=== PATIENT | female | born 1945 | race Caucasian/White ===

== ENCOUNTER 2020-07-23 09:02 | Outpatient (CLI) | payer OTHER, SELFPAY ==
--- NOTE | ~2020-07-23 | MM_ITS ---
EXAMINATION: MM screening stephanie BI w andriy HISTORY: Screening mammogram TECHNIQUE: Craniocaudal and mediolateral oblique 3-D tomosynthesis images were obtained and synthetic 2-D images were generated. CAD analysis was submitted and interpreted. COMPARISON: 05/19/2019, 06/04/2018, 06/03/2017 bilateral digital screening mammogram examinations BREAST PARENCHYMAL COMPOSITION: There are scattered areas of fibroglandular density. FINDINGS: There is volume loss of the right breast, asymmetry as well as some benign calcifications; these are stable postoperative changes from right partial mastectomy for history of right breast yariel gnancy. There is no evidence of suspicious mass, calcification, or architectural distortion to sugges t malignancy in either breast. There has been no suspicious interval change. IMPRESSION: 1. No mammographic evidence of interval malignancy; status post right partial mastectomy for breast m alignancy. 2. Recommend routine screening mammography in one year. BI-RADS Category 2: Benign finding(s). Reviewed, dictated and finalized at location A. [employer] SET UP OPERATOR IMPRESSION: 1. No mammographic evidence of interval malignancy; status post right partial m astectomy for breast malignancy. 2. Recommend routine screening mammography in one year. BI-RADS Category 2: Benign finding(s).
--- NOTE | ~2020-07-23 | DEXA_ITS ---
Bone Density Report Name: Penny Flores Age: 75 Sex: Female Ethnicity: White Date of : 1945 Indication: postmenopausal osteoporosis; monitoring treatment; height loss; prior fracture; cancer; Referring Provider: MARIBELL ROME Study: Bone densitometry was performed. Exam Date: July 23, 2020 Accession number: [id number] Bone Density: Region BMD T-score Z-score Classification AP Spine (L1-L4) 0.713 -3.0 -0.7 Osteoporosis Femoral Neck (Right) 0.484 -3.3 -1.2 Osteoporosis Total Hip (Right) 0.659 -2.3 -0.6 Osteopenia World Health Organization criteria for BMD impression classify patients as: Normal (T-score at or above -1.0), Osteopenia (T-score between -1.0 and -2.5), or Osteoporosis (T-score at or below -2.5). 10-year Fracture Risk: FRAX not reported because: Some T-score for Spine Total or Hip Total or Femoral Neck at or below -2.5 Prior hip or vertebral fracture Treated for osteopor Previous Exams: Region Exam Age BMD T-score BMD Change BMD Change Date g/cm2 vs Baseline vs Previous AP Spine(L1-L4) 07/23/2020 75 0.713 -3.0 0.010(1.4%) 0.018(2.6%) 05/19/2019 74 0.695 -3.2 -0.009(-1.2%) -0.009(-1.2%) 06/07/2014 69 0.704 -3.1 Total Hip(Right) 07/23/2020 75 0.659 -2.3 0.061(10.3%)* 0.034(5.5%)* 05/19/2019 74 0.625 -2.6 0.027(4.5%) 0.012(1.9%) 08/28/2016 71 0.614 -2.7 0.015(2.6%) 0.015(2.6%) 06/07/2014 69 0.598 -2.8 *Denotes significance at 95% confidence level, LSC for AP Spine = 0.022 g/cm2, LSC for Total Hip = 0.027 g/cm2 Clinical Information Provided by Patient: Have had a previous hip or vertebral fracture Has had a low trauma fracture Is being treated for osteoporosis Has used the following medications: Actonel (i.e. risedronate), Vitamin D, Calcium Has the following medical conditions: Cancer Patient maximum height was 66 Menopause Age: 46 No regular weight bearing exercise Does not regularly consume dairy products Drinks caffeinated beverages Onset of menses at age 16 Number of children 2 Impression: The patient has established osteoporosis, based on the Right Femoral Neck T-score and the existence of a prior fracture. The patient has risk factors, including: previous fracture. No significant bone loss was observed. Discussion: PATIENT UNDER TREATMENT WITH NO SIGNIFICANT BMD LOSS SINCE LAST EXAM. In an untreated patient, BMD typically declines with age. A lack of decline or gain is usually a sign that treatment is efficacious and fracture
== END 2020-07-23 09:03 | disposition home or self-care (01) ==
LOC: ANHIMG 09:04
PROVIDERS: PCP Internal Medicine; Visit Provider Internal Medicine
DX: Z12.31 Encounter for screening mammogram for malignant neoplasm of breast (principal); M81.0 Age-related osteoporosis without current pathological fracture; M85.851 Other specified disorders of bone density and structure, right thigh
CPT/HCPCS: 77063; 77067; 77080

== ENCOUNTER 2020-11-07 08:20 | Outpatient (CLI) | payer OTHER, SELFPAY ==
--- NOTE | ~2020-11-07 | XR_ITS ---
EXAMINATION: XR lumbar spine 2-3V EXAM DATE: 11/07/2020 08:40 INDICATION: M54.9 - Dorsalgia, unspecified;hx of ruptured disc; no inj . TECHNIQUE: Lumber spine frontal, lateral, lateral L5-S1 projections for interpretation. Comparison is made to prior examination from 06/03/2017. FINDINGS: Mild lumbar dextroscoliosis. Left hip arthroplasty. Moderate loss of the L5-S1 disc height . Mild disc disease at the other lumbar levels. The vertebral bodies are aligned in the AP dimension. Up to moderate lumbar facet arthropathy. Sacrum, sacroiliac joints, sacral arcuate lines are intact. There are no acute fractures identified. There is no significant interval change. IMPRESSION: 1. Moderate facet arthropathy and L5-S1 disc disease. 2. Mild dextroscoliosis. Reviewed, dictated and finalized at location A.
== END 2020-11-07 08:21 | disposition home or self-care (01) ==
PROVIDERS: PCP Internal Medicine; Visit Provider Internal Medicine
DX: M51.37 Other intervertebral disc degeneration, lumbosacral region (principal)
CPT/HCPCS: 72100

== ENCOUNTER 2021-02-01 08:46 | Emergency (ER) | payer OTHER, SELFPAY ==
--- NOTE | ~2021-02-01 | CT_ITS ---
EXAMINATION: CT abdomen pelvis wo con DATE: 02/01/2021 10:08 INDICATION: Right lower quadrant pain TECHNIQUE: Computed tomography (CT) of the abdomen and pelvis was performed without intravenous contr ast. The dose-length product was 287.53 mGy-cm. Automated exposure control and iterative reconstructi on technique were employed. COMPARISON: None. FINDINGS: Lung bases are unremarkable. Heart size normal. No significant pleural or pericardial effus ion. There is atherosclerosis of the aorta without aneurysm. There is a left total hip arthroplasty. There are calcified granulomas of the spleen. The liver, adrenal glands, pancreas, kidneys are unrema rkable. Gallbladder is present. Normal appendix. There is jone appearance to the mesentery, nonspeci fic. No significant lymphadenopathy. Nonobstructive bowel gas pattern. No free air or free fluid. Mod erate lumbar spondylosis. IMPRESSION: 1. No acute abdominal abnormality. Reviewed, dictated and finalized at location B.
[2021-02-01 09:00] VITALS: BP 115/66; PULSE 103; RESP 18; TEMP 36.4; O2SAT 97
--- NOTE | 2021-02-01 09:45 | ED.NAVMDI ---
HPI - Nausea/Vomiting/Diarrhea General Chief complaint: Nausea/Vomiting/Diarrhea Stated complaint: diarrhea x 1 week Time Seen by Provider: 02/01/21 09:33 Source: patient, family and RN notes reviewed Limitations: no limitations History of Present Illness HPI Narrative: Patient is 75 years old white female brought to the emergency room by private car complaining of watery diarrhea for 1 week. 5-10 episodes a day. Associated with abdominal pain which should get better after having bowel movement. Patient denies any fever, chills, vomiting. Patient lives with her granddaughter. Patient been treated for breast cancer 10 years ago. Patient does not smoke, drink or uses drugs. Patient been on Imodium for 1 week without any significant improvement, started yesterday on Lomotil without any improvement Related Data Home Medications Medication Instructions Recorded Confirmed travoprost 0.004 % eye drops 1 drp OPHTHALMIC (EYE) QPM 06/15/20 12/24/20 Allergies Allergy/AdvReac Type Severity Reaction Status Date / Time No Known Drug Allergies Allergy Unknown n/a Verified 12/24/20 08:18 Review of Systems Review of Systems: Narrative: CONSTITUTIONAL: Denies fever, chills, or sweats. EYES: Denies visual changes, redness, or discharge. ENT: Denies rhinorrhea, congestion, sore throat, or otalgia. CARDIOVASCULAR: Denies chest pain, palpitations, or edema. RESPIRATORY: Denies cough or dyspnea. GASTROINTESTINAL: Denies abdominal pain, nausea, vomiting, or diarrhea. GENITOURINARY: Denies dysuria or hematuria. SKIN: Denies rash or itching. MUSCULOSKELETAL: Denies back pain, joint pain, or myalgia. NEUROLOGIC: Denies headache, numbness, or weakness. PSYCHIATRIC: Denies anxiety or depression. [facility] Family History Family History Sibling Family history of hepatitis Family history of lung cancer Family history of malignant neoplasm of breast in first degree relative Family history of heart disease in male family member before age 55 Father Family history of heart disease in male family member before age 55 Patient's father is Family history of cardiovascular disease Mother Family history of heart disease in male family member before age 55 Family history of cardiovascular disease Other Hypertension Social History Social History Years smoked: 1 Smoking status: Former smoker Tobacco type: cigarettes Second hand tobacco smoke exposure: No Alcohol intake: former Exam Narrative: Exam Narrative: General appearance: Well-developed, well-nourished, looks pale and weak, no family member at the bedside Skin: Normal color Head: Normocephalic, nontraumatic Eyes: Clear conjunctiva ENT: Oropharynx normal, ears normal, nose normal Neck: Supple, nontender Chest and respiratory: Airway patent, no respiratory distress, no accessory muscle use Heart: Regular rate/rhythm Abdomen: Soft, mild tenderness right abdomen, no organomegaly, active bowel sounds Vascular: Normal peripheral pulses, normal capillary refill. 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
[2021-02-01 10:00] VITALS: BP 110/72; PULSE 100; RESP 18; O2SAT 98
[2021-02-01] MEDS: ONDANSETRON INJ 4 MG/2 ML VIAL IV PUSH (10:21)
[2021-02-01] MEDS: SODIUM CHLORIDE 0.9% IV 2,000 ML 999 ML IV CONT (10:21)
[2021-02-01 10:28] LABS: Basophils Percent Auto 0.4 % (0.2-1.2); Eosinophils Absolute Auto 0.1 K/mm3 (0-0.3); Eosinophils Percent Auto 0.9 % (0-4.4); Hematocrit 36.9 % (37.0-47.0); Hemoglobin 12.3 g/dL (12.0-15.0); Immature Granulocyte Absolute 0.02 K/mm3 (0.00-0.031); Immature Granulocyte Percent A 0.2 % (0-0.5); Lymphocytes Absolute Auto 1.28 K/mm3 (0.9-3.2); Lymphocytes Percent Auto 13.2 % (18.3-44.2); Mean Corpuscular HGB Conc 33.3 g/dl (32-36); Mean Corpuscular Hemoglobin 29.7 pg (26-34); Mean Corpuscular Volume 89.1 fl (80-100); Mean Platelet Volume 9.4 fl (7.4-10.4); Monocytes Percent Auto 9.8 % (2.6-8.5); Neutrophils Absolute Auto 7.3 K/mm3 (1.3-6.7); Neutrophils Percent Auto 75.5 % (45.5-73.1); Platelet Count Result 205 k/mm3 (150-375); Red Blood Count 4.14 M/mm3 (4.2-5.4); Red Cell Distribution Width 12.2 % (11.5-14.5); White Blood Count 9.7 K/mm3 (4.5-10.0)
[2021-02-01 10:35] LABS: Add Urine Microscopic? YES; Appearance Urine Clear (Clear); Bacteria Urine Trace /hpf; Bilirubin Urine Negative (Negative); Blood Urine Negative (Negative); Color Urine Yellow (Yellow); Glucose Urine UA Negative (Negative); Ketones Urine 1+ mg/dL (Negative); Leukocyte Esterase Ur 1+ LEU/UL (Negative); Mucus Urine Rare /lpf; Nitrate Urine Negative (Negative); Protein Urine 1+ mg/dL (Negative); RBC Urine 0-2 /hpf (0-2); Specific Grav Ur 1.013 (1.001-1.035); Squamous Epithelial Cell Urine Many /hpf (Few); Urobilinogen Urine Negative mg/dL (<2.0); WBC Urine 0-3 /hpf
[2021-02-01 10:39] LABS: Alanine Aminotransferase 8 U/L (4-35); Alkaline Phosphatase 67 U/L (38-126); Anion Gap 7 mmol/L (8-16); Aspartate Amino Transferase 25 U/L (14-36); Bilirubin,Total 0.5 mg/dL (0.2-1.3); Blood Urea Nitrogen 10 mg/dL (7-17); Carbon Dioxide 27 mmol/L (22-30); Chloride 103 mmol/L (98-107); Estimated CRCL calculation 48 ml/min; Estimated Glomerular Filt Rate > 60; Glucose 88 mg/dL (65-105); Lipase 76 U/L (23-300); Sodium 137 mmol/L (137-145)
[2021-02-01 11:00] VITALS: BP 115/78; PULSE 79; RESP 18; O2SAT 100
== END 2021-02-01 12:48 | disposition home or self-care (01) ==
PROVIDERS: Emergency Provider Emergency Medicine; PCP Internal Medicine
DX: R19.7 Diarrhea, unspecified (principal); Z85.3 Personal history of malignant neoplasm of breast; Z87.891 Personal history of nicotine dependence
CPT/HCPCS: 36415; 74176; 80053; 81001; 83690; 85025; 96361; 96374; 99284; J2405; J7030

== ENCOUNTER 2021-08-22 07:46 | Outpatient (CLI) | payer OTHER, SELFPAY ==
--- NOTE | ~2021-08-22 | MM_ITS ---
EXAMINATION: MM screening [facility] BI w andriy HISTORY: Screening TECHNIQUE: Craniocaudal and mediolateral oblique 3-D tomosynthesis images were obtained and synthetic 2-D images were generated. CAD analysis was submitted and interpreted. COMPARISON: Comparison to multiple prior studies sequentially, with oldest reviewed study dated 03/2015. BREAST PARENCHYMAL COMPOSITION: There are scattered areas of fibroglandular density. FINDINGS: There is no evidence of suspicious mass, calcification, or architectural distortion to sugg est malignancy in either breast. There has been no suspicious interval change. IMPRESSION: 1. No mammographic evidence of malignancy. 2. Recommend routine screening mammography in one year. BI-RADS Category 1: Negative Reviewed, dictated and finalized at location A. NAILER
== END 2021-08-22 07:47 | disposition home or self-care (01) ==
LOC: ANHIMG 07:48
PROVIDERS: PCP Internal Medicine; Visit Provider Nurse Practitioner
DX: Z12.31 Encounter for screening mammogram for malignant neoplasm of breast (principal)
CPT/HCPCS: 77063; 77067

== ENCOUNTER 2022-08-06 10:56 | Outpatient (CLI) | payer OTHER, SELFPAY ==
--- NOTE | ~2022-08-06 | DEXA_ITS ---
Bone Density Report Name: PJ PETE Age: 77 Sex: Female Ethnicity: White Date of : 1945 Indication: postmenopausal osteoporosis; monitoring treatment; prior fracture; cancer; Referring Provider: MARIBELL ROME Study: Bone densitometry was performed. Exam Date: August 06, 2022 Accession number: [id number] Bone Density: Region BMD T-score Z-score Classification AP Spine(L1-L4) 0.706 -3.1 -0.6 Osteoporosis Femoral Neck (Right) 0.502 -3.1 -1.0 Osteoporosis Total Hip (Right) 0.589 -2.9 -1.0 Osteoporosis World Health Organization criteria for BMD impression classify patients as: Normal (T-score at or above -1.0), Osteopenia (T-score between -1.0 and -2.5), or Osteoporosis (T-score at or below -2.5). 10-year Fracture Risk: FRAX not reported because: Some T-score for Spine Total or Hip Total or Femoral Neck at or below -2.5 Prior hip or vertebral fracture Treated for osteoporosis Previous Exams: Region Exam Age BMD T-score BMD Change BMD Change Date g/cm2 vs Baseline vs Previous AP Spine (L1-L4) 08/06/2022 77 0.706 -3.1 0.002 (0.2%) -0.008 (-1.1%) 07/23/2020 75 0.713 -3.0 0.010 (1.4%) 0.018 (2.6%) 05/19/2019 74 0.695 -3.2 -0.009 (-1.2%) -0.009 (-1.2%) 06/07/2014 69 0.704 -3.1 Total Hip(Right) 08/06/2022 77 0.589 -2.9 -0.009 (-1.4%) -0.070 (-10.6% 07/23/2020 75 0.659 -2.3 0.061 (10.3%)* 0.034 (5.5%)* 05/19/2019 74 0.625 -2.6 0.027 (4.5%) 0.012 (1.9%) 08/28/2016 71 0.614 -2.7 0.015 (2.6%) 0.015 (2.6%) 06/07/2014 69 0.598 -2.8 *Denotes significance at 95% confidence level, LSC for AP Spine = 0.022 g/cm2, LSC for Total Hip = 0.027 g/cm2 Clinical Information Provided by Patient: Have had a previous hip or vertebral fracture Has had a low trauma fracture Is being treated for osteoporosis Has used the following medications: Fosamax (i.e. alendronate), Vitamin D, Calcium Has the following medical conditions: Cancer Patient maximum height was 65 Menopause Age: 46 No regular weight bearing exercise Onset of menses at age 16 Number of children 2 Impression: The patient has established osteoporosis, based on the Total Spine T-score and the existence of a prior fracture. The patient has risk factors, including: previous fracture. The BMD for the Total Hip(Right) decreased, changing by -10.6% since the last DXA exam. Discussion: SIGNIFICANT BONE LOSS OBSERVED. Adherence to therapy (including calcium and vitamin D intake) should be assessed. If compliance is
== END 2022-08-06 10:57 | disposition home or self-care (01) ==
LOC: ANHIMG 10:57
PROVIDERS: PCP Internal Medicine; Visit Provider Internal Medicine
DX: M81.0 Age-related osteoporosis without current pathological fracture (principal)
CPT/HCPCS: 77080

== ENCOUNTER 2023-03-31 07:36 | Outpatient (CLI) | payer OTHER, SELFPAY ==
--- NOTE | ~2023-03-31 | MM_ITS ---
EXAMINATION: MM screening stephanie BI w andriy HISTORY: Screening mammogram, history of right breast cancer TECHNIQUE: Craniocaudal and mediolateral oblique 3-D tomosynthesis images were obtained and synthetic 2-D images were generated. CAD analysis was submitted and interpreted. COMPARISON: 08/22/2021, 07/23/2020, 05/19/2019 BREAST PARENCHYMAL COMPOSITION: There are scattered areas of fibroglandular density. FINDINGS: There are chronic changes in the right breast related to the lumpectomy and radiation treat ment. No suspicious mass, calcification, or architectural distortion are identified in either breast to suggest malignancy. There has been no suspicious interval change. IMPRESSION: 1. No mammographic evidence of malignancy. 2. Recommend routine screening mammography in one year. BI-RADS Category 2: Benign finding(s). Reviewed, dictated and finalized at location A.
== END 2023-03-31 07:37 | disposition home or self-care (01) ==
PROVIDERS: PCP Family Medicine; Visit Provider Family Medicine
DX: Z12.31 Encounter for screening mammogram for malignant neoplasm of breast (principal); Z85.3 Personal history of malignant neoplasm of breast
CPT/HCPCS: 77063; 77067

== ENCOUNTER 2024-12-03 10:54 | Emergency (ER) | payer OTHER, SELFPAY ==
--- NOTE | ~2024-12-03 | XR_ITS ---
EXAM/PROCEDURE: XR chest 2V - 12/03/2024 11:26 CDT HISTORY: 79 years old Female with cough with crackles TECHNIQUE: Two view(s) of the chest. COMPARISON: 03/14/2017 FINDINGS: LUNGS/ PLEURA: No focal consolidation. No appreciable pneumothorax or large pleural effusion. 1.2 cm pulmonary nodule in the right lower lung zone, new since 2017. HEART/ MEDIASTINUM: Heart appears normal in size. BONES: Degenerative changes. Status post kyphoplasty of mid thoracic vertebral body. OTHER: Visualized upper abdomen is unremarkable. IMPRESSION: No acute process. 1.2 cm pulmonary nodule in the right lung base, new since 2017. Nonemergent outpatient CT chest is re commended for further evaluation. Reviewed, dictated and finalized at location A. IMPRESSION: No acute process. 1.2 cm pulmonary nodule in the right lung base, new since 2016. Nonemergent out patient CT chest is recommended for further evaluation.
--- NOTE | 2024-12-03 11:11 | ED.GENADULT ---
HPI - General Adult General Chief complaint: Upper Respiratory Infection Stated complaint: COUGH/LOSING VOICE Time Seen by Provider: 12/03/24 11:11 Source: patient Mode of arrival: ambulatory Limitations: no limitations History of Present Illness HPI narrative: 71-year-old female patient presents to [facility] with complaints of a cough for the past 6 days. Patient states she has had some body aches, chills, runny nose congestion. Patient states she has had some right-sided pain when coughing. Patient states she has also lost her voice. Patient has not measured her temperature since symptoms started. Patient states she has been taking some [id number] [place] Plus for her symptoms. Patient has received her up-to-date COVID and influenza vaccines this season. Related Data Home Medications ?Medication ?Instructions ?Recorded ?Confirmed ?Last Taken ?Type travoprost 0.004 % eye drops 1 drp ophthalmic (eye) QPM 06/15/20 07/21/22 Unknown History (Travatan Z) latanoprost 0.005 % eye drops drp 12/03/24 Unknown History Allergies Allergy/AdvReac Type Severity Reaction Status Date / Time No Known Drug Allergies Allergy Unknown n/a Verified 12/03/24 11:09 Review of Systems Review of Systems: CONSTITUTIONAL: Positive body aches fever, and chills, or sweats. EYES: Denies visual changes, redness, or discharge. ENT: positive rhinorrhea, congestion, denies sore throat, or otalgia. CARDIOVASCULAR: Denies chest pain, palpitations, or edema. RESPIRATORY: positive cough, denies dyspnea. GASTROINTESTINAL: Denies abdominal pain, nausea, vomiting, or diarrhea. GENITOURINARY: Denies dysuria or hematuria. SKIN: Denies rash or itching. MUSCULOSKELETAL: Denies back pain, joint pain, or myalgia. NEUROLOGIC: Denies headache, numbness, or weakness. PSYCHIATRIC: Denies anxiety or depression. [facility] Family History Family History Sibling Family history of hepatitis Family history of lung cancer Family history of malignant neoplasm of breast in first degree relative Family history of heart disease in male family member before age 55 Father Family history of heart disease in male family member before age 55 Patient's father is Family history of cardiovascular disease Mother Family history of heart disease in male family member before age 55 Family history of cardiovascular disease Other Hypertension Social History Social History Years smoked: 1 Smoking status: Never smoker Tobacco type: cigarettes Second hand tobacco smoke exposure: No Alcohol intake: former Substance use: never Lack of Transportation: No Lack of Food: Never True Current Housing: I Have Housing Concerned About Future Housing: No Difficulty Paying Gas/Electric Bills: No Difficulty Paying for Meds: No Currently Unemployed: No Education: Grade School Difficulty w/ Childcare or Family Care: No Comments At the time of my signature I agree with nursing past medical history, surgical, social, and family history. There is no relevant family history pertinent to the presenting complaint. Exam Narrative: GENERAL: Well-appearing, well-nourished, and in no acute distress. HEAD: Normocephalic, atraumatic. EYES: PERRLA and EOMI. ENT: Nares with erythema and edema noted bilaterally, no rhinorrhea or epistaxis. Mucous membranes moist. posterior pharynx with no erythema, tonsillar enlargement, exudates or lesions present. There is a little bit of fluid noted behind bilateral TMs but no erythema no bulging noted. NECK: Supple. No lymphadenopathy CHEST: Patient has possibly very slight crackles noted to the bilateral lower lobes and decreased lung sounds noted to bilateral lower and upper lobes on auscultation. patient does have an ongoing cough noted during exam. No respiratory distress. HEART: Regular rate and rhythm. No murmur heard. Normal peripheral pulses. ABDOMEN: Soft, nontender, nondistended, normal active bowel sounds. EXTREMITIES: Normal range of motion. No edema. SKIN: Warm, dry, no rash. NEURO: No focal deficits. Alert and oriented x3. Course Course Level of Care: Express Care Visit Reevaluation(s) Reevaluation #1: Re-evaluated patient notified her that the x-rays negative for any acute pneumonia. Her of care swabs for COVID and flu were negative. Discussed with her this is most likely a virus and we will discharge her home with some oral steroids, albuterol inhaler and Tessalon Perles for the coughing. Patient did feel much better after receiving albuterol treatment and lungs have improved. Discussed with patient that a nodule was noted on the chest x-ray that is new from comparison from 2017. Patient denies any history of smoking however she states that her was a 3 pack per day smoker and did smoke in the house and did of lung cancer. Discussed with patient that I highly recommend that she call her primary doctor on Thursday and follow up with this finding on her x-ray. A copy of the x-ray was provided to her to take to her doctor. Patient verbalized understanding of this. Date: 12/03/24 Time: 12:04 Vital Signs Vital signs: Vital Signs Temperature 37.0 C 12/03/24 11:31 Pulse Rate 102 H 12/03/24 11:31 Respiratory Rate 16 12/03/24 11:31 Blood Pressure 158/83 H 12/03/24 11:31 Pulse Oximetry 98 12/03/24 11:31 Temperature 37.0 C 12/03/24 11:31 Pulse Rate 102 H 12/03/24 11:31 Respiratory Rate 16 12/03/24 11:31 Blood Pressure 158/83 H 12/03/24 11:31 Pulse Oximetry 98 12/03/24 11:31 Vital signs reviewed. Medical Decision Making MDM Narrative Medical decision making narrative: Plan of care for patient is to swab her today for COVID and influenza as well as provide her a chest x-ray to rule out pneumonia we will also give her breathing treatment to help with the ongoing coughing. Differential Diagnosis Differential Diagnosis: Differential diagnosis: Allergic rhinitis, chronic sinusitis, tonsillitis, acute sinusitis, infectious mononucleosis, seasonal influenza, pertussis, diphtheria, meningococcal disease, viral syndrome, viral bronchitis, RSV, COVID-19 Vital Signs Vital Signs: Vital Signs Temperature 37.0 C 12/03/24 11:31 Pulse Rate 102 H 12/03/24 11:31 Respiratory Rate 16 12/03/24 11:31 Blood Pressure 158/83 H 12/03/24 11:31 Pulse Oximetry 98 12/03/24 11:31 Temperature 37.0 C 12/03/24 11:31 Pulse Rate 102 H 12/03/24 11:31 Respiratory Rate 16 12/03/24 11:31 Blood Pressure 158/83 H 12/03/24 11:31 Pulse Oximetry 98 12/03/24 11:31 Imaging Data [facility]'s [facility] [address] [place] [address] [place] [address] XRay Report Signed Patient: Penny Saravia : 1945 MR#: [id number] Age: 79 Acct:[id number] Loc: [id number] ADM Date: 12/03/24Attending Dr: Ordering Physician: Annette Freeman APRN Date of Service: 12/03/24 Procedure(s): XR chest 2V Accession Number(s): [id number] cc: Nathaniel Hernandez MD; Annette Freeman SILK SCREEN PRINTER MACHINE~ EXAM/PROCEDURE: XR chest 2V - 12/03/2024 11:26 CDT HISTORY: 79 years old Female with cough with crackles TECHNIQUE: Two view(s) of the chest. COMPARISON: 03/14/2017 FINDINGS: LUNGS/ PLEURA: No focal consolidation. No appreciable pneumothorax or large pleural effusion. 1.2 cm pulmonary nodule in the right lower lung zone, new since 2017. HEART/ MEDIASTINUM: Heart appears normal in size. BONES: Degenerative changes. Status post kyphoplasty of mid thoracic vertebral body. OTHER: Visualized upper abdomen is unremarkable. IMPRESSION: No acute process. 1.2 cm pulmonary nodule in the right lung base, new since 2017. Nonemergent outpatient CT chest is recommended for further evaluation. Reviewed, dictated and finalized at location A. Critical Care Time Critical Care Time Critical Care Time: No Discharge Plan Discharge Clinical Impression: Viral URI with cough Patient Disposition: Home Condition: Stable Instructions: Antibiotic Form, Viral Syndrome (ED) Additional Instructions: Viral illness may last between 7-12days; antibiotic is NOT recommended at this time. Recommend antihistamine such as Benadryl at night time and Claritin/Zyrtec/Belen during the day Cough syrup may cause drowsiness; avoid driving or take it at night time. Use inhaler as needed for cough, wheezing, shortness of breath or chest tightness. Take oral steroids in the morning with food. Also, recommend symptomatic treatment includes: rest, fluids, and increase humidity of the air at home. Recommend Acetaminophen or nonsteroidal anti-inflammatory agents (NSAIDs) as directed in the bottle to reduce fever and/pain/headache. Avoid smoking/second-hand smoke. Limit visits to areas with large crowds. Please schedule a follow-up visit with your personal physician for further evaluation and treatment within 3-5days. Including recheck and discussion of your blood pressure. If your symptoms persist, change or worsen significantly before you can contact your personal physician then please, without delay, go to the emergency department for further evaluation. Patient Language: Kuwaiti Prescriptions: New benzonatate 200 mg capsule 200 mg PO TID PRN (Reason: cough) 10 Days Qty: 30 0RF prednisone 20 mg tablet 40 mg PO DAILY 5 Days Qty: 10 0RF albuterol sulfate [Ventolin HFA] 90 mcg/actuation HFA aerosol inhaler 2 puff INHALATION .Q4 hours PRN (Reason: cough) Qty: 18 0RF No Action latanoprost 0.005 % drops travoprost [Travatan Z] 0.004 % drops 1 drp ophthalmic (eye) QPM vitamin D3-vitamin K2 1,250-200 mcg capsule 1 cap PO WEEKLY Qty: 14 1RF Prolia 60 mg/mL syringe 60 mg subcut [id number] Qty: 1 5RF ropinirole 0.5 mg tablet See Rx Instructions .ROUTE .COMPLEX Qty: 90 1RF Dose Instruction: TAKE 1 TABLET BY MOUTH EVERYDAY AT BEDTIME Rx Instructions: TAKE 1 TABLET BY MOUTH EVERYDAY AT BEDTIME tramadol 50 mg tablet 50 mg PO Q6H PRN (Reason: pain) Qty: 100 0RF Follow-up/Referrals: Nathaniel Hernandez MD [Primary Care Provider] - Time of Disposition: 12:04
[2024-12-03 11:15] VITALS: PULSE 102; RESP 20; O2SAT 98
[2024-12-03 11:31] VITALS: BP 158/83; PULSE 102; RESP 16; TEMP 37; O2SAT 98
[2024-12-03] MEDS: IPRATROPIUM 0.5 MG/ALBUTEROL SULFATE 2.5 MG AMPUL.NEB 3 ML INHALATION (11:39)
[2024-12-03 12:00] VITALS: PULSE 95; RESP 20; O2SAT 98
[2024-12-03 13:03] LABS: EDCOVIDSCREEN Negative (Negative); EDINFLUASCREEN Negative (Negative); EDINFLUBSCREEN Negative (Negative)
== END 2024-12-03 12:08 | disposition home or self-care (01) ==
PROVIDERS: Emergency Provider Nurse Practitioner Family; PCP Family Medicine
DX: J06.9 Acute upper respiratory infection, unspecified (principal); B97.89 Other viral agents as the cause of diseases classified elsewhere; Z20.822 Contact with and (suspected) exposure to COVID-19
CPT/HCPCS: 71046; 87426; 87804; 94640; 99213; G0463

== ENCOUNTER 2024-12-08 08:53 | Outpatient (CLI) | payer OTHER, SELFPAY ==
--- NOTE | ~2024-12-08 | CT_ITS ---
CT Scan of the Chest without Contrast: Clinical Indication: Pulmonary nodule Technique: Contiguous sections were acquired throughout the chest without intravenous contrast. Dose reduction technique was used on this scan by utilizing automated exposure control and iterative recon struction technique. The dose-length product (DLP) was 92.20 mGy-cm. Findings: There is no evidence of any significant mediastinal, hilar or axillary lymphadenopathy. Coronary aria ry calcifications are present. There is no evidence of pleural or pericardial effusion. 3 mm right apical nodule present. There is curvilinear scarring in the inferior right upper lobe. The re is focal ground glass opacities in the right lower lobe. There is minimal bibasilar scarring and q uestionable minimal bibasilar tree-in-bud opacities. Images through the upper abdomen reveal no abnormalities. T9 vertebroplasty noted. Impression: Possible minimal bibasilar tree-in-bud opacities with minimal bibasilar scarring. Additional 3 mm api tj nodule. Findings could reflect minimal small airways infectious process. No overtly suspicious pu lmonary nodule seen. Reviewed, dictated and finalized at location M. Impression: Possible minimal bibasilar tree-in-bud opacities with minimal bibasilar scarrin g. Additional 3 mm apical nodule. Findings could reflect minimal small airways infectious process. No overtly suspicious pulmonary nodule seen.
== END 2024-12-08 08:54 | disposition home or self-care (01) ==
LOC: GOSHIMG 08:54
PROVIDERS: PCP Family Medicine; Visit Provider Family Medicine
DX: R91.1 Solitary pulmonary nodule (principal)
CPT/HCPCS: 71250

== ENCOUNTER 2025-01-24 09:35 | Outpatient (CLI) | payer OTHER, SELFPAY | END 2025-01-24 09:36 | disposition home or self-care (01) | LOC: ANHAUDIO 09:36 | PROVIDERS: PCP Family Medicine; Visit Provider Otolaryngology | DX: H90.3 Sensorineural hearing loss, bilateral (principal) | CPT/HCPCS: 92557; 92567 ==

== ENCOUNTER 2025-01-27 11:42 | Outpatient (CLI) | payer OTHER, SELFPAY | END 2025-01-27 11:43 | disposition home or self-care (01) | LOC: ANHAUDIO 11:43 | PROVIDERS: PCP Family Medicine; Visit Provider Otolaryngology | DX: H90.3 Sensorineural hearing loss, bilateral (principal) | CPT/HCPCS: 92557; 92567 ==

== ENCOUNTER 2025-05-08 08:28 | Emergency (ER) | payer OTHER, SELFPAY ==
[2025-05-08 08:39] VITALS: BP 148/73; PULSE 92; RESP 16; TEMP 36.2; O2SAT 100
--- NOTE | 2025-05-08 09:14 | ED.EXTPRO ---
HPI - Extremity Problem General Chief complaint: Extremity Problem,Nontraumatic Stated complaint: R Arm Pain Time Seen by Provider: 05/08/25 08:35 Source: patient and RN notes reviewed Mode of arrival: ambulatory Limitations: no limitations History of Present Illness HPI Narrative: 80-year-old female presents to the [facility] complaining of right hand/forearm numbness. Patient said symptoms started on Thursday proximally 2 days ago. Patient denies any falls or injuries. Patient reports she feels right hand is non will radiate up into her right elbow with numbness and shooting pains. Patient reports certain movements of her elbow she will have the same symptoms up into her right upper arm. Patient denies any neck pain, headache, dizziness lightheadedness, vision changes, slurred speech, facial drooping, with focal weakness or loss of consciousness, confusion, or any other symptoms. Says she has a history of degenerative disc disease, arthritis, or osteoporosis. Related Data Home Medications ?Medication ?Instructions ?Recorded ?Confirmed ?Last Taken ?Type travoprost 0.004 % eye drops 1 drp ophthalmic (eye) QPM 06/15/20 01/25/25 Unknown History (Travatan Z) denosumab 60 mg/mL subcutaneous 60 mg subcut [id number] 01/13/25 01/25/25 Unknown History syringe (Prolia) cyclosporine 0.05 % eye drops in a drp 05/08/25 Unknown History dropperette latanoprost 0.005 % eye drops drp 05/08/25 Unknown History timolol maleate 0.5 % eye drops drp 05/08/25 Unknown History Allergies Allergy/AdvReac Type Severity Reaction Status Date / Time No Known Drug Allergies Allergy Unknown n/a Verified 05/08/25 08:42 Review of Systems Review of Systems: CONSTITUTIONAL: Denies fever, chills, or sweats. EYES: Denies visual changes, redness, or discharge. ENT: Denies rhinorrhea, congestion, sore throat, or otalgia. CARDIOVASCULAR: Denies chest pain, palpitations, or edema. RESPIRATORY: Denies cough or dyspnea. GASTROINTESTINAL: Denies abdominal pain, nausea, vomiting, or diarrhea. GENITOURINARY: Denies dysuria or hematuria. SKIN: Denies rash, wound, or itching. MUSCULOSKELETAL: Denies back pain, joint pain, or myalgia. Positive for right arm pain. NEUROLOGIC: Denies headache, or weakness. Positive for numbness PSYCHIATRIC: Denies anxiety or depression. All other systems reviewed are negative, except as documented in HPI. PMFSH Family History Family History Sibling Family history of hepatitis Family history of lung cancer Family history of malignant neoplasm of breast in first degree relative Family history of heart disease in male family member before age 55 Father Family history of heart disease in male family member before age 55 Patient's father is Family history of cardiovascular disease Mother Family history of heart disease in male family member before age 55 Family history of cardiovascular disease Other Hypertension Social History Social History Years smoked: 1 Smoking status: Never smoker Tobacco type: cigarettes Second hand tobacco smoke exposure: No Alcohol intake: former Substance use: never Lack of Transportation: No Lack of Food: Never True Current Housing: I Have Housing Concerned About Future Housing: No Difficulty Paying Gas/Electric Bills: No Difficulty Paying for Meds: No Currently Unemployed: No Education: Grade School Difficulty w/ Childcare or Family Care: No Comments At the time of my signature, I reviewed and agree with the nursing past medical, surgical, social, and family history. There is no relevant family history pertinent to the patient complaint. Exam Narrative: GENERAL: This is a well-nourished, well-developed adult, in no apparent distress. They are non ill-appearing, nontoxic appearing. HEAD: normocephalic, atraumatic. EYES: Sclera clear/white. Vision is grossly intact. Conjunctiva normal. Extraocular movement intact. Pupils PERRLA. EARS: External ears normal Hearing grossly intact. NOSE: External nose normal THROAT: Mucous membranes moist NECK: Neck supple. No cervical point tenderness, crepitus, or step-offs. CARDIOVASCULAR: Regular rate and rhythm RESPIRATORY: Respiratory rate normal, respiratory effort nonlabored, no respiratory distress NEURO: awake, alert, and oriented to person, place and time. There were no obvious focal neurologic abnormalities. Cranial nerve 2-12 grossly intact. No pronator drift. No slurred speech. No Facial droop. Tongue is midline. EXTREMITIES: Right arm: No obvious deformity, injury, swelling, bruising, redness. Nontender through full range of motion to right shoulder, elbow, wrist. No bony tenderness. Capillary refill less than 3 seconds. Patient reports numbness. Patient can feel examiner palpating her entire arm. Neurovascular status intact. Negative Tinel sign and phalen sign. Employee Development Specialist strength 5/5 equal bilaterally. Radial and ulnar pulses 2+ and palpable. Patient make a fist, thumbs-up sign, stop sign, okay sign. Radial and ulnar nerve distribution intact. BACK: Nontender without deformity. Course Course Emergency Course: Portions of this record may have been created with voice recognition software Level of Care: Express Care Visit Vital Signs Vital signs: Vital Signs Temperature 97.2 F L 05/08/25 08:39 Pulse Rate 92 05/08/25 08:39 Respiratory Rate 16 05/08/25 08:39 Blood Pressure 148/73 H 05/08/25 08:39 Pulse Oximetry 100 05/08/25 08:39 Temperature 97.2 F L 05/08/25 08:39 Pulse Rate 92 05/08/25 08:39 Respiratory Rate 16 05/08/25 08:39 Blood Pressure 148/73 H 05/08/25 08:39 Pulse Oximetry 100 05/08/25 08:39 Reviewed MDM - Extremity (Nontraumatic) MDM Narrative Medical decision making narrative: No evidence of injury to right arm. No bony tenderness. Neurovascular status intact. Symptoms likely nerve related. Recommend close follow-up with PCP if further testing and evaluation performed. And nerve conduction study. Negative Tinel sign and phalen sign. Discussed physical exam findings. Advised supportive measures and signs/symptoms to go to the ER. Pt is appropriate for outpt treatment and f/u. Differential Diagnosis Differential diagnosis: Likely other (Carpal tunnel, cervical radiculopathy, brachial plexopathy, neuropathy, paresthesia) Critical Care Time Critical Care Time Critical Care Time: No Discharge Plan Discharge Clinical Impression: Paresthesia of right arm Patient Disposition: Home Condition: Stable Instructions: Paresthesia (ED) Additional Instructions: You may take ibuprofen 600 mg to 800 mg every 6-8 hours. Do not exceed more than 800 mg of ibuprofen per dose. Do not exceed more than 3200 mg ibuprofen in a day. You may take up to 1000 mg Tylenol every 6-8 hours. Do not exceed 1000 mg per dose, do exceed more than 4000 mg of Tylenol in a day. You may try compression such as a Lino bandage, wrist splint, or elbow sleeve to help with symptoms. Follow-up with your PCP in 3-5 days. Go to the ER if you develops severe headaches have a vision changes, dizziness, nausea, vomiting, slurred speech, facial droop, one-sided weakness, confusion, or any serious concerns. Patient Language: Honduran Prescriptions: No Action latanoprost 0.005 % drops timolol maleate 0.5 % drops cyclosporine 0.05 % dropperette travoprost [Travatan Z] 0.004 % drops 1 drp ophthalmic (eye) QPM vitamin D3-vitamin K2 1,250-200 mcg capsule 1 cap PO WEEKLY Qty: 14 1RF ropinirole 0.5 mg tablet See Rx Instructions .ROUTE .COMPLEX Qty: 90 1RF Dose Instruction: TAKE 1 TABLET BY MOUTH EVERYDAY AT BEDTIME Rx Instructions: TAKE 1 TABLET BY MOUTH EVERYDAY AT BEDTIME Prolia 60 mg/mL syringe 60 mg subcut [id number] tramadol 50 mg tablet 50 mg PO Q6H PRN (Reason: pain) Qty: 100 0RF Follow-up/Referrals: Nathaniel Hernandez MD [Primary Care Provider, Family Practice] Time of Disposition: 08:53
== END 2025-05-08 08:59 | disposition home or self-care (01) ==
PROVIDERS: PCP Family Medicine
DX: R20.2 Paresthesia of skin (principal); M19.90 Unspecified osteoarthritis, unspecified site; M81.0 Age-related osteoporosis without current pathological fracture
CPT/HCPCS: 99211; G0463

== ENCOUNTER 2025-05-12 09:14 | Outpatient (CLI) | payer OTHER, SELFPAY ==
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
--- NOTE | ~2025-05-12 | XR_ITS ---
XR thoracic spine 3V Indication: M54.9 - Dorsalgia; RT ARM NUMBNESS x1 WK Comparison: None Findings: There is a levoconvex scoliosis. There is a compression fracture of T9 with kyphoplasty changes and loss of height 97 with kyphosis. No additional fracture or subluxation. Moderate osteopenia. Moderate loss of disc height throughout. Soft tissues unremarkable Impression: No acute abnormality. Reviewed, dictated and finalized at location A. Impression: No acute abnormality.
--- NOTE | ~2025-05-12 | XR_ITS ---
XR cervical spine min 6V Indication: M54.2 - Cervicalgia; RT SIDED ARM NUMBESS x1 WK Comparison: None Findings: No fracture identified, no subluxation flexion and extension. Minimal loss of disc height at C5-6 and C6-7 with minimal narrowing of the neural foramina. Soft tissues unremarkable Impression: No acute abnormality. Reviewed, dictated and finalized at location A. Impression: No acute abnormality.
== END 2025-05-12 09:15 | disposition home or self-care (01) ==
PROVIDERS: PCP Family Medicine; Visit Provider Nurse Practitioner Family
DX: M54.2 Cervicalgia (principal); M54.10 Radiculopathy, site unspecified; M25.511 Pain in right shoulder; M54.9 Dorsalgia, unspecified
CPT/HCPCS: 72052; 72072; 73030

== ENCOUNTER 2025-08-15 07:32 | Emergency (ER) | payer OTHER, SELFPAY ==
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
[2025-08-15 07:35] VITALS: BP 169/68; PULSE 78; RESP 17; TEMP 36.4; O2SAT 100
[2025-08-15 09:49] LABS: Hematocrit 39.6 % (37.0-47.0); Hemoglobin 13.1 g/dL (12.0-15.0); Immature Granulocyte Percent A 0.5 % (0-0.5); Immature Platelet Fraction Pct 1.8 % (0.9-11.2); Lymphocytes Absolute Auto 1.48 K/mm3 (0.9-3.2); Mean Corpuscular HGB Conc 33.1 g/dl (32-36); Mean Corpuscular Hemoglobin 30.8 pg (26-34); Mean Corpuscular Volume 93.0 fl (80-100); Nucleated Red Blood Cells Absolute Auto 0.000 K/mm3 (0.0-0.012); Nucleated Red Blood Cells Perc 0.0 % (0.0-0.2); Platelet Count Result 135 k/mm3 (150-375); Red Blood Count 4.26 M/mm3 (4.2-5.4); White Blood Count 7.7 K/mm3 (4.5-10.0)
[2025-08-15 10:07] LABS: Alanine Aminotransferase 44 U/L (6-35); Albumin Level 3.7 g/dL (3.5-5.1); Alkaline Phosphatase 77 U/L (38-126); Anion Gap 4 mmol/L (4-12); Aspartate Amino Transferase 59 U/L (14-36); Bilirubin,Total 0.9 mg/dL (0.2-1.3); Blood Urea Nitrogen 13 mg/dL (7-17); Calcium 8.9 mg/dL (8.4-10.2); Carbon Dioxide 27 mmol/L (22-30); Chloride 105 mmol/L (98-107); Estimated CRCL calculation 42 ml/min; Estimated Glomerular Filt Rate > 60; Glucose 93 mg/dL (65-110); Potassium 3.9 mmol/L (3.4-5.0); Sodium 136 mmol/L (137-145); Total Protein 6.6 g/dL (6.3-8.2)
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
[2025-08-15] MEDS: MORPHINE SULFATE (*CRX) 4 MG/ML INJ IV PUSH (10:51)
[2025-08-15] MEDS: ONDANSETRON INJ 4 MG/2 ML VIAL IV PUSH (10:51)
[2025-08-15 11:52] VITALS: BP 138/63; PULSE 87; RESP 12; O2SAT 99
== END 2025-08-15 12:13 | disposition home or self-care (01) ==
PROVIDERS: Emergency Provider Physician Assistant; PCP Family Medicine
DX: S00.31XA Abrasion of nose, initial encounter (principal); S60.811A Abrasion of right wrist, initial encounter; T14.8XXA Other injury of unspecified body region, initial encounter; R90.82 White matter disease, unspecified; M47.812 Spondylosis without myelopathy or radiculopathy, cervical region; V49.40XA Driver injured in collision with unspecified motor vehicles in traffic accident, initial encounter
CPT/HCPCS: 36415; 70450; 71260; 72125; 73110; 74177; 80053; 85025; 85055; 96374; 96375; 99284; J2270; J2405; Q9967